=== PATIENT | male | born 1985 | race African-American/Black ===

== ENCOUNTER 2022-08-09 07:35 | Emergency (ER) | payer OTHER | END 2022-08-09 11:57 | disposition home or self-care (01) | LOC: ERS 07:35 | DX: N45.1 Epididymitis (principal); E11.9 Type 2 diabetes mellitus without complications; I10 Essential (primary) hypertension; F17.210 Nicotine dependence, cigarettes, uncomplicated; Z79.84 Long term (current) use of oral hypoglycemic drugs | CPT/HCPCS: 76870; 93976 ==